=== PATIENT | female | born 1960 | race Caucasian/White ===

== ENCOUNTER 2023-12-05 03:25 | Emergency (ER) | payer MEDICAID, OTHER ==
[~2023-12-05] VITALS: Ht 167.6 cm; Wt 90.0 kg
[~2023-12-05 03:25] MED LIST: AMLO10TA80; ATEN50TA; LIP40; METF500T; VALS1TAB31
[2023-12-05 03:28] VITALS: TEMP 98.9; O2SAT 96
[2023-12-05 03:49] LABS: CHLORIDE 102 mEq/L (98-107); POTASSIUM 4.1 mEq/L (3.5-5.1); SODIUM 134 mEq/L (136-145)
[2023-12-05 03:50] LABS: CALCIUM 9.4 mg/dL (8.7-10.4); CARBON DIOXIDE 22 mEq/L (21-32)
[2023-12-05 03:51] LABS: BASOPHILS % 0.7 % (0.0-2.0); DIFFERENTIAL COMMENT 0; EOSINOPHILS % 1.9 % (0.0-5.0); HEMATOCRIT. 33.6 % (36.0-48.0); HEMOGLOBIN. 11.2 g/dL (12.0-16.0); LYMPHOCYTES % 19.2 % (20.0-50.0); MEAN CORPUSCULAR HEMOGLOBIN 34.9 pg (28.0-32.0); MEAN CORPUSCULAR HGB CONC 33.4 g/dL (31.0-37.0); MEAN CORPUSCULAR VOLUME 104.7 fL (81.0-99.0); MEAN PLATELET VOLUME 7.7 fl (7.4-10.4); MONOCYTES % 6.6 % (2.0-8.0); NEUTROPHILS % 71.6 % (40.0-76.0); PLATELET 262 x1000/uL (130-400); RED BLOOD CELL COUNT 3.21 mill/uL (4.2-5.4); RED CELL DISTRIBUTION WIDTH 18.3 % (11.6-14.6); WHITE BLOOD COUNT 9.1 x1000/uL (4.5-11.0)
[2023-12-05 03:54] LABS: INR 0.9; PROTHROMBIN TIME 10.3 sec (9.6-11.0)
[2023-12-05 03:55] LABS: GLUCOSE 238 mg/dL (70-105); UREA NITROGEN BLOOD 22 mg/dL (9-23)
[2023-12-05 03:57] LABS: ALANINE AMINOTRANSFERASE 19 IU/L (10-49); ASPARTATE AMINOTRANSFERASE 18 IU/L (<34); BILIRUBIN TOTAL 0.2 mg/dL (0.1-1.0); PROTEIN TOTAL 7.7 g/dL (6.0-8.3)
[2023-12-05 04:02] LABS: BILIRUBIN DIRECT < 0.1 mg/dL (<=3.0)
[2023-12-05] MEDS: MORPHINE SULFATE 4 MG/ML INJ (FOR IV/IM USE) IV STA (04:05)
[2023-12-05] MEDS: ONDANSETRON HCL 4MG/2ML INJ IV STA (04:06)
[2023-12-05 05:50] VITALS: BP 149/50; PULSE 61; RESP 16
[2023-12-05] MEDS: IOHEXOL-300 100 ML BOTTLE ONE (06:52)
== END 2023-12-05 07:08 | disposition home or self-care (01) ==
LOC: ER 03:30
DX: R10.31 Right lower quadrant pain (principal); R10.32 Left lower quadrant pain; I12.0 Hypertensive chronic kidney disease with stage 5 chronic kidney disease or end stage renal disease; E11.22 Type 2 diabetes mellitus with diabetic chronic kidney disease; N18.6 End stage renal disease; Z99.2 Dependence on renal dialysis
CPT/HCPCS: 99285; 74177; 96374; 96375; 80076; 80048; 83690; 85025; 85610; 36415; Q9967; J2405; J2270